=== PATIENT | female | born 1990 | race Caucasian/White ===

== ENCOUNTER 2022-02-25 10:50 | Emergency (ER) | payer OTHER ==
[~2022-02-25] VITALS: Ht 170.2 cm; Wt 93.2 kg
[~2022-02-25 10:50] MED LIST: ACET-784 PO
[2022-02-25 11:35] VITALS: BP 122/79
== END 2022-02-25 14:37 | disposition home or self-care (01) ==
LOC: EMS 10:55
DX: S82.62XA Displaced fracture of lateral malleolus of left fibula, initial encounter for closed fracture (principal); X50.1XXA Overexertion from prolonged static or awkward postures, initial encounter; Y93.01 Activity, walking, marching and hiking; Y92.89 Other specified places as the place of occurrence of the external cause; Y99.8 Other external cause status
CPT/HCPCS: 29515; 99284; 73562-TC; 73610-TC; Z7502